=== PATIENT | female | born 1945 | race African-American/Black ===

== ENCOUNTER 2018-11-09 08:57 | Emergency (ER) | payer OTHER, BC ==
[~2018-11-09] VITALS: Ht 172.7 cm; Wt 79.4 kg
[2018-11-09 11:37] VITALS: BP 126/60
== END 2018-11-09 11:38 | disposition home or self-care (01) ==
LOC: ED 08:57
DX: M65.262 Calcific tendinitis, left lower leg (principal)
CPT/HCPCS: J1885